=== PATIENT | female | born 1995 ===

== ENCOUNTER 2018-10-21 21:40 | Emergency (ER) | payer BC ==
[2018-10-21 22:52] VITALS: BMI 33.8
[2018-10-21 23:16] LABS: SQUAMOUS EPITHIAL 13 /hpf (0-5); URINE AMORPHOUS SEDIMENT RARE /ul (<OCC); URINE BACTERIA RARE (<OCC); URINE BILIRUBIN NEGATIVE (NEGATIVE); URINE BLOOD LARGE (NEGATIVE); URINE CLARITY CLOUDY (Clear); URINE COLOR YELLOW (YELLOW); URINE GLUCOSE (UA) NEG (NEGATIVE); URINE LEUKOCYTE ESTERASE SMALL Leu/uL (Negative); URINE PROTEIN NEGATIVE (NEGATIVE); URINE UROBILINOGEN 0.2-1.0 mg/dL (0.2-1.0)
--- NOTE | 2018-10-22 03:58 | OBHP ---
Datetime: 10/21/2018 21:55 IP Adm Impression: , intrauterine ; No Active Labor IP Chief Complaint Other: Abdominal pain IP Admit Plan: Observation/Evaluation; Discharge home Admit Comment, IP Provider: 23 y/o female 30.0 wk IUP presents to [facility] w/ c/o intermittent abdo jessie cramping and lower abdominal pressure 7/10 in severity, which began at 5pm today. She denies va ginal bleeding, fluid loss, urinary symptoms, n/v/d/c. She was last sexually active 1 week ago. She e ndorses movements. OB: Dr. De Leon Pmhx: denies HomeRx: vitamins Socialhx: denies tobacco, etoh, recreational drug use Sugeries: denies Famhx: Maternal grandmother w/ HTN and DM Allergies: NKDA ROS: negative except per HPI PE: GEN: appears comfortable, no acute distress Heart: S1 S2 present, normal RRR Lungs: normal breathing effort. clear to auscultation bilaterally Abd: Gravid, soft non-tender Extremities: no pedal edema, no calf tenderness Cervical exam (by Dr. Wynne): cervix closed Assessment and Plan: 23 y/o female 30.0 wk IUP presents to [facility] w/ c/o abdominal pain [place]: no contractions, NST reactive; patient is not in labor. Will check a U/A Patient is stable for discharge, ER precautions given, and instructed to follow up w/ OB within a week. Dr. De Leon aware. Lilia Malagon, pgyi Addendum by Dr. Wynne: I have evalauted the patient independently and I agree with the above Pelvic Type - PN: Adequate Extremities - PN: Normal Abdomen - PN: Normal Back - PN: Normal Breast - PN: Not Done Lungs - PN: Normal Heart - PN: Normal Thyroid - PN: Not Done Neurologic - PN: Not Done HEENT - PN: Normal General - PN: Normal FHR - Baseline A Provider: 150 Contraction Comments Provider: none Gestation - Est Wks by US: 30.0 EGA AdmitDate IP: 30.0 Vital Signs Provider: Reviewed; Within Normal Limits IP Chief Complaint: Other NICHD Variability Prov Fetus A: Moderate 6-25bpm NICHD Accel Fetus A IP Provider: 10X10 Dilatation, Provider: 0 Genitourinary Exam: Not Done DTRs - PN: Not Done
--- NOTE | 2018-10-22 03:58 | OBDCSUM ---
Datetime: 10/21/2018 23:42 Discharged to, Provider: Home Follow up at, Provider: Disch Instr Activity: Normal activity Disch Instr Diet: Regular Discharge Diet restrict Prov: DRINK PLENTY OF WATER Discharge Diagnosis, Provider: False Labor - Undelivered Discharge Time: 10/21/2018 23:43 Follow up in weeks, Provider: IN 2 WEEKS Disch Referrals: None Disch Activity Restrictions: No lifting
[2018-10-22 06:26] VITALS: BP 112/67; PULSE 101
== END 2018-10-21 23:45 | disposition home or self-care (01) ==
LOC: H.EROB2 21:40
DX: O26.93 Pregnancy related conditions, unspecified, third trimester (principal); R10.2 Pelvic and perineal pain; Z3A.30 30 weeks gestation of pregnancy; O47.03 False labor before 37 completed weeks of gestation, third trimester

== ENCOUNTER 2018-11-18 23:29 | Emergency (ER) | payer BC ==
[2018-11-19 00:04] VITALS: BMI 34.4
[2018-11-19 00:57] LABS: BASO % 0.3 % (0.0-2.0); EOS % 0.3 % (0.0-4.0); HEMOGLOBIN 9.8 g/dL (12.0-16.0); LYMPH # 2.5 K/uL (1.0-4.3); LYMPH % 19.5 % (20.0-40.0); MEAN CELL VOLUME 76.2 fl (81.0-99.0); MEAN CORPUSCULAR HEMOGLOBIN 24.7 pg (27.0-31.0); MEAN CORPUSCULAR HGB CONC 32.5 g/dL (33.0-37.0); MEAN PLATELET VOLUME 7.2 fl (7.2-11.7); MONO # 0.7 K/uL (0.0-0.8); MONO % 5.7 % (0.0-10.0); NEUT # 9.4 K/uL (1.8-7.0); NEUT % 74.2 % (50.0-75.0); NRBC % 0.1 % (0.0-0.0); RBC 3.94 Mil/uL (3.80-5.20); RED CELL DISTRIBUTION WIDTH 13.5 % (11.5-14.5); WHITE BLOOD COUNT 12.6 K/uL (4.8-10.8)
[2018-11-19 09:55] VITALS: BP 123/79; PULSE 102
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
== END 2018-11-19 04:20 | disposition home or self-care (01) ==
LOC: H.EROB2 23:29
DX: O26.93 Pregnancy related conditions, unspecified, third trimester (principal); Z04.3 Encounter for examination and observation following other accident; Z3A.34 34 weeks gestation of pregnancy